=== PATIENT | male | born 1960 | race Caucasian/White ===

== ENCOUNTER → 2021-06-16 | Outpatient (CLI) | payer OTHER ==
--- NOTE | 2021-06-16 20:25 | RAD ---
Right Lower Extremity Venous Doppler: Reason for examination: Right lower extremity swelling. The right lower extremity venous system was evaluated from the common femoral and greater saphenous v eins distally to the calf veins with rain scale imaging, color flow imaging and spectral analysis. There is normal blood flow without deep venous thrombosis at the common femoral vein, superficial fem oral vein and popliteal vein. The posterior tibial and peroneal veins are poorly visualized due to pa tient swelling. There is normal response of the deep venous system to compression and augmentation. T here was occlusive thrombus in the lower leg at the greater saphenous vein from proximal to distal. Impression: Thrombosis of the greater saphenous vein in the left lower leg proximal to distal. Electronically signed by: Kassandra Covington MD (06/16/2021 8:23 PM) QUINN
== END ==
LOC: US 18:50
PROVIDERS: ATTEND Family Medicine
DX: I82.811 Embolism and thrombosis of superficial veins of right lower extremity (principal)
CPT/HCPCS: 93971